=== PATIENT | male | born 1960 | race Caucasian/White ===

== ENCOUNTER 2020-09-23 08:00 | Day surgery (SDC) | payer BC ==
[~2020-09-23] VITALS: Ht 185.4 cm; Wt 113.1 kg
[~2020-09-23 08:00] MED LIST: COUMADIN 6MG6 MG/TAB PO; COUMADIN5 MG PO
[2020-09-23 08:39] VITALS: BP 127/87; PULSE 71; TEMP 98.8
[2020-09-23 10:00] VITALS: BP 127/83; PULSE 73; TEMP 98.8
[2020-09-23 10:42] VITALS: BP 121/80; PULSE 68; TEMP 98.8
--- NOTE | 2020-09-23 11:00 | NUR ---
Discharge instructions given and pt ambulated to private car.
[2020-09-23] MEDS ORDERED: ASPIRIN E.C. 8181 MG PO (11:25)
== END 2020-09-23 11:00 | disposition home or self-care (01) ==
LOC: COL.CAR 08:00
DX: I35.1 Nonrheumatic aortic (valve) insufficiency (principal); E66.9 Obesity, unspecified; I63.81 Other cerebral infarction due to occlusion or stenosis of small artery; R00.2 Palpitations; J45.909 Unspecified asthma, uncomplicated; E78.49 Other hyperlipidemia; Z68.34 Body mass index [BMI] 34.0-34.9, adult; Z79.899 Other long term (current) drug therapy; Z79.01 Long term (current) use of anticoagulants; Z95.4 Presence of other heart-valve replacement; Z86.73 Personal history of transient ischemic attack (TIA), and cerebral infarction without residual deficits; Z91.19 Patient's noncompliance with other medical treatment and regimen; Z80.1 Family history of malignant neoplasm of trachea, bronchus and lung